=== PATIENT | female | born 1950 | race African-American/Black ===

== ENCOUNTER → 2017-02-23 | Outpatient (CLI) | payer MEDICARE ==
[2014-12-03 16:27] VITALS: BP 132/69
[~2017-02-23] MED LIST: ASPI-482 PO; CLON0.3T PO; CLON1PAT3 TD; GLIM2TAB2 PO; LISI40TA PO; METF850T2 PO; METO50TA10 PO; SIMV40TA3 PO
--- NOTE | 2017-02-23 18:24 | RAD ---
THYROID ULTRASOUND Clinical Indication: MULTIPLE THYROID NODULES Comparison: None. Findings: The right lobe of the thyroid measures 4.4 x 1.9 x 2.2 cm. The left lobe of the thyroid measures 4.4 x 1.4 x 1.9 cm. Multiple bilateral thyroid nodules. The largest on the right is in the lower pole which is part solid and part cystic with peripheral vascularity measuring 1.1 x 1.0 x 1.5 cm. The largest on the left is a solid nodule in the lower pole with peripheral vascularity measuring 0.7 x 0.4 x 0.7 cm. The isthmus measures 0.8 cm. It contains a 1.1 x 0.6 cm hypoechoic nodule. IMPRESSION: Multinodular thyroid. Recommend FNA of the largest right lobe part solid, part cystic nodule.
== END | disposition home or self-care (01) ==
LOC: US 11:01
PROVIDERS: ATTEND Physician Assistant
DX: E04.2 Nontoxic multinodular goiter (principal)
CPT/HCPCS: 76536

== ENCOUNTER → 2018-05-17 | Outpatient (CLI) | payer MEDICARE ==
[2014-12-03 16:27] VITALS: BP 132/69
[~2018-05-17] MED LIST changes: -METF850T2 PO; +METF850T8 PO; -METO50TA10 PO; +METO50TA29 PO
--- NOTE | 2018-05-17 17:00 | RAD ---
EXAM: Thyroid sonogram. HISTORY: Thyroid nodule follow-up. TECHNIQUE: Sonographic imaging of the thyroid was performed. COMPARISON: 02/23/2017. FINDINGS: The right thyroid lobe measures 4.3 x 1.8 x 2.2 cm. The left thyroid lobe measures 4.4 x 1.8 x 2.0 cm. The thyroid isthmus measures 5 mm in thickness. There are multiple bilateral thyroid nodules and cysts. For reference purposes, the largest lesion is a solid lesion with cystic components and microcatheter calcifications within the inferior right thyroid lobe measuring 13 x 12 x 11 mm. Fine-needle aspiration of this lesion was reportedly previously performed. This is stable compared to the prior study. The second largest solid nodule is mixed solid and cystic and measures 8 x 7 x 6 mm within the inferior left thyroid lobe. There is a 9 x 8 x 7 mm cyst within the right thyroid lobe. There is a mixed solid and cystic nodule within the thyroid isthmus measuring 10 x 6 mm. There are multiple additional smaller nodules and cysts. The largest lesions are not signally changed compared to the prior study. IMPRESSION: 1. Multiple bilateral thyroid nodules and cysts, the multiplicity and stability of which favors benignity. The largest lesion measures 13 mm within the right thyroid lobe and was reportedly benign on prior fine-needle aspiration. 2. No significant interval change. Electronically signed by: Maame Billings MD (05/17/2018 4:56 PM) [place] [id number]
== END | disposition home or self-care (01) ==
LOC: US 09:55
PROVIDERS: ATTEND Surgery
DX: E04.2 Nontoxic multinodular goiter (principal)
CPT/HCPCS: 76536

== ENCOUNTER 2018-07-23 20:25 | Emergency (ER) | payer MEDICARE ==
[~2018-07-23] VITALS: Ht 162.6 cm; Wt 84.4 kg
[2018-07-23] MEDS ORDERED: IV NORMAL SALINE 1,000ML 1,000 ML IV ONE (20:45)
[2018-07-23 21:13] LABS: BASO % 0 % (0-3); EOS % 0 % (0-3); HEMATOCRIT 36.7 % (36.0-47.0); LYMPH % 11 % (24-48); MEAN CORPUSCULAR HEMOGLOBIN 29 pg (25-35); MEAN CORPUSCULAR HGB CONC 33 g/dL (31-37); MEAN CORPUSCULAR VOLUME 87 fL (79-100); MONO # 0.6 x10^3/uL (0.0-1.1); MONO % 6 % (0-9); NEUT # 8.1 x10^3uL (1.8-7.7); NEUT % 83 % (31-73); PLATELET COUNT 326 x10^3/uL (140-400); RED BLOOD COUNT 4.22 x10^6/uL (3.50-5.40); RED CELL DISTRIBUTION WIDTH 12.5 % (11.5-14.5); WHITE BLOOD COUNT 9.8 x10^3/uL (4.0-11.0)
[2018-07-23] MEDS ORDERED: TAMSULOSIN 0.4 MG CAP.ER.24H. PO ONE (21:15)
[2018-07-23] MEDS ORDERED: MORPHINE SULFATE 4 MG/ML DISP.SYRIN. IV ONE (21:15)
[2018-07-23] MEDS ORDERED: ONDANSETRON PF 4 MG/2 ML VIAL. IV ONE (21:15)
[2018-07-23 21:22] LABS: ALBUMIN 4.1 g/dL (3.4-5.0); CALCIUM 9.2 mg/dL (8.5-10.1); GFR 66.7; POTASSIUM 3.7 mmol/L (3.5-5.1); TOTAL BILIRUBIN 0.5 mg/dL (0.2-1.0); TOTAL PROTEIN 8.3 g/dL (6.4-8.2)
[2018-07-23 21:40] LABS: BACTERIA,URINE 0 /HPF (0-FEW); BILIRUBIN,URINE NEG (NEG); CLARITY,URINE HAZY; COLOR,URINE COLORLESS; GLUCOSE,URINE 500 mg/dL (NEG); NITRITE,URINE NEG (NEG); RBC,URINE >40 /HPF (0-2); SQUAMOUS EPITHELIAL CELL,UR FEW /LPF; UROBILINOGEN,URINE 0.2 mg/dL (0.2 mg/dL); WBC,URINE 0 /HPF (0-4)
[2018-07-23] MEDS ORDERED: CONTRAST GIVEN MC PRN (22:15)
[2018-07-23] MEDS ORDERED: IOHEXOL 300 MG/ML 75 ML VIAL. IV ONE (22:30)
--- NOTE | 2018-07-23 23:08 | RAD ---
Examination: CT ABD PELV W/ IV CONTRST ONLY History: Right lower sharp abdominal pain x2 days. Hx appendectomy. Comparison/Correlation: None Findings: Axial images of the abdomen and pelvis were obtained with IV contrast. Visualized lung bases are clear. Liver, spleen, pancreas, and adrenal glands are normal. Left collecting system is unremarkable. Subtle high density within the gallbladder raises question of small calculi and/or sludge. No biliary dilatation. Marked right hydronephrosis and hydroureter due to a calculus at the S1 level is present. This calculus measures 0.9 cm longitudinal by 0.6 cm anteroposterior by 0.6 cm transverse. Right renal lower pole calyceal calculus measuring 0.3 cm diameter is present. Small calculus involving the right renal lower pole of similar size is also present more inferiorly. Right perinephric fluid is present. Moderate quantity of stool in the colon present. No inflammatory change about the cecum. Urinary bladder is unremarkable. Significant fibroid involvement of the uterus is present. T12 and L1 vertebroplasty findings are present. Impression: Marked right hydronephrosis and hydroureter due to a calculus at the S1 level measuring up to 0.9 cm x 0.6 cm x 0.6 cm. Nonobstructive right renal calculi also present. Fibroid uterus. Possible cholelithiasis. Electronically signed by: Peewee De La Torre MD (07/23/2018 11:04 PM) [facility]
[2018-07-23] MEDS ORDERED: KETOROLAC 15 MG/ML VIAL. ONE (23:22)
[2018-07-23] MEDS ORDERED: HYDROmorphone PF 1 MG/ML DISP.SYRIN ONE (23:22)
--- NOTE | 2018-07-23 23:24 | PHYS DOC ---
Adult General Chief Complaint Chief Complaint flank pain HPI HPI 68 years old female presented to the emergency department with right flank pain radiates to the right groin started to yesterday associated with nausea and vomited once no any other symptoms Review of Systems Review of Systems Constitutional: Denies fever or chills [] Eyes: Denies change in visual acuity, redness, or eye pain [] HENT: Denies nasal congestion or sore throat [] Respiratory: Denies cough or shortness of breath [] Cardiovascular: No additional information not addressed in HPI [] GI: Denies bloody stools or diarrhea [] : Denies dysuria or hematuria [] Musculoskeletal: Denies back pain or joint pain [] Integument: Denies rash or skin lesions [] Neurologic: Denies headache, focal weakness or sensory changes [] Endocrine: Denies polyuria or polydipsia [] All other systems were reviewed and found to be within normal limits, except as documented in this note. Current Medications Current Medications Current Medications Medications (Trade) Dose Ordered Sig/Shannan Start Time Stop Time Status Last Admin Dose Admin Info (Do NOT chart on this entry -- for MONITORING) 1 each PRN DAILY PRN 07/23/18 22:15 07/25/18 22:14 Iohexol (Omnipaque 300 Mg/ml) 75 ml 1X ONCE 07/23/18 22:30 07/23/18 22:31 DC 07/23/18 22:29 75 ML Morphine Sulfate (Morphine 4mg Syringe) 4 mg 1X ONCE 07/23/18 21:15 07/23/18 21:16 DC 07/23/18 21:17 4 MG Ondansetron HCl (Zofran) 4 mg 1X ONCE 07/23/18 21:15 07/23/18 21:16 DC 07/23/18 21:16 4 MG Sodium Chloride 1,000 ml @ 1,000 mls/hr 1X ONCE 07/23/18 20:45 07/23/18 21:44 DC 07/23/18 21:17 1,000 MLS/HR Tamsulosin HCl (Flomax) 0.4 mg 1X ONCE 07/23/18 21:15 07/23/18 21:16 DC 07/23/18 21:16 0.4 MG Allergies Allergies Allergies Coded Allergies Type Severity Reaction Last Updated Verified No Known Drug Allergies 5/2/15 No Physical Exam Physical Exam Constitutional: Well developed, well nourished, acute distress, non-toxic appearance. [] HENT: Normocephalic, atraumatic, bilateral external ears normal, oropharynx moist, no oral exudates, nose normal. [] Eyes: PERRLA, EOMI, conjunctiva normal, no discharge. [] Neck: Normal range of motion, no tenderness, supple, no stridor. [] Cardiovascular:Heart rate regular rhythm, no murmur [] Lungs & Thorax: Bilateral breath sounds clear to auscultation [] Abdomen: Bowel sounds normal, soft, + tenderness Right CVA , no masses, no pulsatile masses. [] Skin: Warm, dry, no erythema, no rash. [] Back: No tenderness, no CVA tenderness. [] Extremities: No tenderness, no cyanosis, no clubbing, ROM intact, no edema. [] Neurologic: Alert and oriented X 3, normal motor function, normal sensory function, no focal deficits noted. [] Psychologic: Affect normal, judgement normal, mood normal. [] Current Patient Data Vital Signs Vital Signs Date Time Temp Pulse Resp B/P (MAP) Pulse Ox O2 Delivery O2 Flow Rate FiO2 07/23/18 21:17 100 07/23/18 20:45 98.6 94 16 Room Air Lab Results Laboratory Tests Test 07/23/18 20:57 07/23/18 21:05 White Blood Count 9.8 x10^3/uL (4.0-11.0) Red Blood Count 4.22 x10^6/uL (3.50-5.40) Hemoglobin 12.0 g/dL (12.0-15.5) Hematocrit 36.7 % (36.0-47.0) Mean Corpuscular Volume 87 fL (79-100) Mean Corpuscular Hemoglobin 29 pg (25-35) Mean Corpuscular Hemoglobin Concent 33 g/dL (31-37) Red Cell Distribution Width 12.5 % (11.5-14.5) Platelet Count 326 x10^3/uL (140-400) Neutrophils (%) (Auto) 83 % (31-73) H Lymphocytes (%) (Auto) 11 % (24-48) L Monocytes (%) (Auto) 6 % (0-9) Eosinophils (%) (Auto) 0 % (0-3) Basophils (%) (Auto) 0 % (0-3) Neutrophils # (Auto) 8.1 x10^3uL (1.8-7.7) H Lymphocytes # (Auto) 1.0 x10^3/uL (1.0-4.8) Monocytes # (Auto) 0.6 x10^3/uL (0.0-1.1) Eosinophils # (Auto) 0.0 x10^3/uL (0.0-0.7) Basophils # (Auto) 0.0 x10^3/uL (0.0-0.2) Sodium Level 137 mmol/L (136-145) Potassium Level 3.7 mmol/L (3.5-5.1) Chloride Level 99 mmol/L (98-107) Carbon Dioxide Level 25 mmol/L (21-32) Anion Gap 13 (6-14) Blood Urea Nitrogen 17 mg/dL (7-20) Creatinine 1.0 mg/dL (0.6-1.0) Estimated GFR (Cockcroft-Gault) 66.7 BUN/Creatinine Ratio 17 (6-20) Glucose Level 187 mg/dL (70-99) H Calcium Level 9.2 mg/dL (8.5-10.1) Total Bilirubin 0.5 mg/dL (0.2-1.0) Aspartate Amino Transferase (AST) 22 U/L (15-37) Alanine Aminotransferase (ALT) 24 U/L (14-59) Alkaline Phosphatase 95 U/L (46-116) Total Protein 8.3 g/dL (6.4-8.2) H Albumin 4.1 g/dL (3.4-5.0) Albumin/Globulin Ratio 1.0 (1.0-1.7) Lipase 1149 U/L (73-393) H Urine Collection Type Unknown Urine Color Colorless Urine Clarity Hazy Urine pH 8.5 Urine Specific [place] 1.020 Urine Protein Neg (NEG-TRACE) Urine Glucose (UA) 500 mg/dL (NEG) Urine Ketones (Stick) 15 mg/dL (NEG) Urine Blood Large (NEG) Urine Nitrite Neg (NEG) Urine Bilirubin Neg (NEG) Urine Urobilinogen Dipstick 0.2 mg/dL (0.2 mg/dL) Urine Leukocyte Esterase Neg (NEG) Urine RBC >40 /HPF (0-2) Urine WBC 0 /HPF (0-4) Urine Squamous Epithelial Cells Few /LPF Urine Bacteria 0 /HPF (0-FEW) EKG EKG [] Radiology/Procedures Radiology/Procedures [] Course & Med Decision Making Course & Med Decision Making Pertinent Labs and Imaging studies reviewed. (See chart for details) [] Final Impression Final Impression [] Problems: (1) Right kidney stone Dragon Disclaimer Dragon Disclaimer This electronic medical record was generated, in whole or in part, using a voice recognition dictation system. STANLEY VILLATORO MD Jul 23, 2018 23:24
[2018-07-23] MEDS ORDERED: KETOROLAC 15 MG/ML VIAL. IV ONE (23:45)
[2018-07-23] MEDS ORDERED: HYDROmorphone PF 1 MG/ML DISP.SYRIN IV ONE (23:45)
[2018-07-24 00:05] VITALS: BP 154/69
== END 2018-07-24 00:20 | disposition short-term general hospital (02) ==
LOC: ER 20:25
DX: N20.0 Calculus of kidney (principal)
CPT/HCPCS: 36415; 74177; 80053; 81001; 83690; 85025; 96361; 96374; 96375; 99285; J1170; J1885; J2270; J2405; Q9967; J7030

== ENCOUNTER → 2019-02-11 | Outpatient (CLI) | payer MEDICARE ==
--- NOTE | 2019-02-11 17:08 | RAD ---
DATE: 02/11/2019 EXAM: MAMMO TONI SCREENING BILATERAL HISTORY: Routine screening COMPARISON: 08/01/2014 and 11/05/2015 mammographic exams This study was interpreted with the benefit of Computerized Aided Detection (CAD). Breast Density: SCATTERED The breast parenchyma shows scattered fibroglandular densities. Breast parenchyma level B. FINDINGS: Very minimal benign calcification is present. No mass or distortion. No suspicious calcifications. IMPRESSION: Stable BI-RADS CATEGORY: 1 NEGATIVE RECOMMENDED FOLLOW-UP: 12M 12 MONTH FOLLOW-UP PQRS compliance statement: Patient information was entered into a reminder system with a target due date for the next mammogram. Mammography is a sensitive method for finding small breast cancers, but it does not detect them all and is not a substitute for careful clinical examination. A negative mammogram does not negate a clinically suspicious finding and should not result in delay in biopsying a clinically suspicious abnormality. "Our facility is accredited by the [employer] Mammography Program."
== END | disposition home or self-care (01) ==
LOC: MAMMO 08:23
PROVIDERS: ATTEND Physician Assistant
DX: Z12.31 Encounter for screening mammogram for malignant neoplasm of breast (principal); N64.89 Other specified disorders of breast
CPT/HCPCS: 77063; 77067

== ENCOUNTER → 2020-01-17 | Outpatient (CLI) | payer MEDICARE ==
[~2020-01-17] MED LIST changes: -GLIM2TAB2 PO; +GLIM2TAB7 PO; +SIMV40TA18 PO; -SIMV40TA3 PO
--- NOTE | 2020-01-17 17:42 | RAD ---
THYROID ULTRASOUND History: Reason: F/U GOITER / Spl. Instructions: / History: Comparison: May 17, 2018 Technique: Multiple grayscale and color Doppler images of the thyroid gland were obtained. Findings: Right thyroid lobe: 4.3 x 2.1 x 1.8 cm. Homogeneous echotexture. Left thyroid lobe: 4.4 x 1.8 x 1.4 cm. Homogeneous echotexture. Isthmus: 0.9 cm. Multinodular thyroid. Warp Scouring Vat Tender samples included below: Right mid thyroid mixed cystic and solid nodule measures 0.8 x 0.5 x 0.6 cm. TI-RADS 3. Similar compared to prior although better characterize the current study. Mixed cystic and solid right mid thyroid nodule with isoechoic echotexture measures 1.0 x 1.1 x 0.8 cm. TI-RADS 3. Decreased compared to prior. Mixed cystic and solid right inferior thyroid nodule measures 1.1 x 1.1 x 0.8 cm. TI-RADS 3. Decreased compared to prior. Spongiform left inferior thyroid nodule measures 0.8 x 0.6 x 0.5 cm. TI-RADS 3. Similar compared to prior. Mixed cystic and solid right isthmus nodule measures 1.1 x 0.9 x 0.7 cm. TI-RADS 3. Unchanged compared to prior. ACR Thyroid Imaging, Reporting And Data System (TI-RADS): White Paper Of The ACR TI-RADS Committee. Journal of the [employer], volume 14, issue 5, pages 587-595 (December 2016). IMPRESSION: 1. Multinodular thyroid with TI-RADS 3 nodules bilaterally. Several nodules are decreased in size compared to prior. Electronically signed by: Ramo Lance DO (01/17/2020 5:40 PM) [facility]
== END | disposition home or self-care (01) ==
LOC: US 14:51
PROVIDERS: ATTEND Surgery
DX: E04.2 Nontoxic multinodular goiter (principal)
CPT/HCPCS: 76536

== ENCOUNTER → 2020-10-22 | Outpatient (CLI) | payer MEDICARE ==
[~2020-10-22] MED LIST changes: -LISI40TA PO; +LISI40TA6 PO
--- NOTE | 2020-10-23 09:37 | RAD ---
DATE: 10/22/2020 9:44 AM EXAM: MAMMO TONI SCREENING BILATERAL HISTORY: Screening. History of right breast biopsy and history of left breast loop recorder insertion. COMPARISON: 02/11/2019, 11/05/2015. Bilateral CC and MLO views of the breasts were performed. Bilateral breast tomosynthesis was performed in CC and MLO projections. This study was interpreted with the benefit of Computerized Aided Detection (CAD). FINDINGS: Breast Density: HETERO The breast parenchyma Is heterogeneously dense, which could reduce sensitivity of mammography. Breast parenchyma level C Architectural distortion in the posterior upper outer right breast is unchanged from 2019 and compatible with a surgical biopsy scar. Architectural distortion in the upper inner left breast posteriorly is also present and consistent with surgical changes from previous loop recorder placement. No suspicious masses, microcalcifications or unexplained architectural distortion is present to suggest malignancy in either breast. The visualized axillae are unremarkable. IMPRESSION: No mammographic evidence of malignancy. BI-RADS CATEGORY: 2 BENIGN FINDING(S) RECOMMENDED FOLLOW-UP: 12M 12 MONTH FOLLOW-UP Annual screening mammography is recommended, unless clinically indicated sooner based on symptoms or change in physical exam. PQRS compliance statement: Patient information was entered into a reminder system with a target due date for the next mammogram. Mammography is a sensitive method for finding small breast cancers, but it does not detect them all and is not a substitute for careful clinical examination. A negative mammogram does not negate a clinically suspicious finding and should not result in delay in biopsying a clinically suspicious abnormality. "Our facility is accredited by the [employer] Mammography Program."
== END ==
LOC: MAMMO 09:36
PROVIDERS: ATTEND Physician Assistant
DX: Z12.31 Encounter for screening mammogram for malignant neoplasm of breast (principal)
CPT/HCPCS: 77063; 77067